=== PATIENT | female | born 1990 | race Caucasian/White ===

== ENCOUNTER 2017-08-06 16:18 | Emergency (ER) | payer OTHER ==
--- NOTE | 2017-08-06 16:33 | PDOC ---
Rapid Medical Evaluation Time Seen by Provider: 08/06/17 16:29 Medical Evaluation: I have performed a brief in-person evaluation of this patient. The patient presents with a chief complaint of: Started cipro for UTI 3 days ago. Feeling b/l flank pain and back spasms today. Also with sore throat today. Pertinent physical exam findings: b/l flank TTP. No CVA TTP. I have ordered the following: labs, UA/culture/hcg, insert IV, Normal saline The patient will proceed to the ED for further evaluation. Discharge Disposition - Diagnosis Flank pain - Referrals - Patient Instructions - Post Discharge Activity
[2017-08-06 16:34] VITALS: BP 99/71; TEMP 98.7; BMI 20.4
[2017-08-06] MEDS ORDERED: SODIUM CHLORIDE 0.9% 500 ML INFUS.BAG IV ONE (16:49)
--- NOTE | 2017-08-06 16:54 | PDOC ---
History of Present Illness - General Chief Complaint: Pain, Acute Stated Complaint: ALLERGIC REACTION Time Seen by Provider: 08/06/17 16:29 - History of Present Illness Initial Comments: 27-year-old female without comorbidities presents for evaluation of back pain dysuria and sore throat. She states about a month ago she was being treated for urinary tract infection she never completed the entire course of antibiotics because she started to feel better and then about a week ago she was placed on Cipro for a recurrent UTI. Her symptoms persist despite treatment. She denies fever she does have general malaise. 08/06/17 16:49 Past History - Past Medical History Allergies/Adverse Reactions: Allergies Allergy/AdvReac Type Severity Reaction Status Date / Time No Known Allergies Allergy Verified 08/06/17 16:29 Home Medications: Ambulatory Orders Ciprofloxacin HCl [Cipro] 500 mg PO BID 08/06/17 CVA: No COPD: No DVT: No Other medical history: REOCCURENT UTI"S - Immunization History Immunization Up to Date: Yes - Suicide/Smoking/Psychosocial Hx Smoking History: Never smoked Information on smoking cessation initiated: No Hx Alcohol Use: No Drug/Substance Use Hx: No Substance Use Type: None Review of Systems - Review of Systems Constitutional: Yes: Malaise HEENTM: Yes: Throat Pain Musculoskeletal: Yes: Back Pain All Other Systems: Reviewed and Negative *Physical Exam - Vital Signs Last Vital Signs Temp Pulse Resp BP Pulse Ox 98.7 F 118 H 18 99/71 99 08/06/17 16:30 08/06/17 16:30 08/06/17 16:30 08/06/17 16:30 08/06/17 16:30 - Physical Exam Comments: GENERAL: The patient is awake, alert, and fully oriented, in no acute distress. HEAD: Normal with no signs of trauma. EYES: Pupils equal, round and reactive to light, extraocular movements intact, sclera anicteric, conjunctiva clear. ENT: Ears normal, nares patent, oropharynx clear without exudates. Moist mucous membranes. NECK: Normal range of motion, supple without lymphadenopathy, JVD, or masses. LUNGS: Breath sounds equal, clear to auscultation bilaterally. No wheezes, and no crackles. HEART: Regular rate and rhythm, normal S1 and S2 without murmur, rub or gallop. ABDOMEN: Soft, nontender, normoactive bowel sounds. No guarding, no rebound. No masses. Bilateral CVA tenderness. EXTREMITIES: Normal range of motion, no edema. No clubbing or cyanosis. No cords, erythema, or tenderness. NEUROLOGICAL: Cranial nerves II through XII grossly intact. Normal speech, normal gait. PSYCH: Normal mood, normal affect. SKIN: Warm, Dry, normal turgor, no rashes or lesions noted. 08/06/17 16:50 Medical Decision Making - Medical Decision Making Is a 27-year-old female afebrile and hypotensive And tachycardic I will have her transferred to the main ER for further workup 08/06/17 16:51 08/06/17 16:51 *DC/Admit/Observation/Transfer Diagnosis at time of Disposition: Flank pain - Referrals - Patient Instructions - Post Discharge Activity
[2017-08-06 17:48] LABS: BASO % 0.2 % (0-2.0); EOS % 0.2 % (0-4.5); HEMATOCRIT 36.9 % (32.4-45.2); LYMPH % 24.9 % (8-40); MCH 27.4 pg (25.7-33.7); MCHC 32.6 g/dl (32.0-36.0); MEAN PLT VOLUME 8.1 fl (7.5-11.1); MONO % 7.6 % (3.8-10.2); NEUT % 67.1 % (42.8-82.8); PLATELET COUNT 291 K/MM3 (134-434); RBC 4.39 M/mm3 (3.60-5.2); RDW 13.1 % (11.6-15.6); WHITE BLOOD COUNT 11.9 K/mm3 (4.0-10.0)
[2017-08-06 17:55] VITALS: PULSE 68
[2017-08-06 18:07] LABS: ALBUMIN 3.2 g/dl (3.4-5.0); ANION GAP 8 (8-16); BLOOD UREA NITROGEN 6 mg/dL (7-18); CALCIUM 8.4 mg/dL (8.5-10.1); CHLORIDE 104 mmol/L (98-107); CO2 25 mmol/L (21-32); GLUCOSE,RANDOM 80 mg/dL (74-106); SODIUM 137 mmol/L (136-145)
[2017-08-06 18:10] LABS: ALK PHOS 68 U/L (45-117); BILIRUBIN,TOTAL 0.4 mg/dL (0.2-1.0); CREATININE 0.9 mg/dL (0.55-1.02); SGOT/AST 33 U/L (15-37); SGPT/ALT 50 U/L (12-78); TOT PROT 7.5 g/dl (6.4-8.2)
[2017-08-06 19:30] LABS: URINE APPEARANCE CLEAR; URINE BILIRUBIN NEGATIVE (<2.0 mg/dL); URINE COLOR YELLOW; URINE GLUCOSE (UA) NEGATIVE (NEGATIVE); URINE KETONE 1+ (NEGATIVE); URINE NITRITE NEGATIVE (NEGATIVE); URINE PROTEIN NEGATIVE (NEGATIVE); URINE UROBILINOGEN NEGATIVE mg/dL (0.2-1.0)
[2017-08-06 19:42] LABS: HCG,QUALITATIVE URINE NEGATIVE
[2017-08-06 19:45] LABS: URINE LEUK ESTERASE 1+ (NEGATIVE)
[2017-08-06 19:54] LABS: EPI CELLS RARE /HPF (FEW); URINE HYALINE CAST 3 /lpf; URINE MUCUS RARE
--- NOTE | 2017-08-06 20:00 | PDOC ---
*Physical Exam - Vital Signs Last Vital Signs Temp Pulse Resp BP Pulse Ox 98.7 F 68 18 99/71 100 08/06/17 16:30 08/06/17 17:53 08/06/17 16:30 08/06/17 16:30 08/06/17 17:53 ED Treatment Course - LABORATORY CBC & Chemistry Diagram: 08/06/17 17:10 08/06/17 17:10 - ADDITIONAL ORDERS Additional order review: Laboratory Results 08/06/17 08/06/17 18:43 17:10 Sodium 137 Potassium 4.0 Chloride 104 Carbon Dioxide 25 Anion Gap 8 BUN 6 L Creatinine 0.9 Creat Clearance w eGFR > 60 Random Glucose 80 Calcium 8.4 L Total Bilirubin 0.4 AST 33 ALT 50 Alkaline Phosphatase 68 Total Protein 7.5 Albumin 3.2 L Urine Color Yellow Urine Appearance Clear Urine pH 5.0 Ur Specific Gore 1.011 Urine Protein Negative Urine Glucose (UA) Negative Urine Ketones 1+ H Urine Blood Negative Urine Nitrite Negative Urine Bilirubin Negative Urine Urobilinogen Negative Ur Leukocyte Esterase 1+ H Urine WBC (Auto) 5 Urine RBC (Auto) 2 Ur Epithelial Cells Rare Hyaline Casts 3 Urine Mucus Rare Urine HCG, Qual Negative 08/06/17 17:10 RBC 4.39 MCV 84.0 MCHC 32.6 RDW 13.1 MPV 8.1 Neutrophils % 67.1 Lymphocytes % 24.9 Monocytes % 7.6 Eosinophils % 0.2 Basophils % 0.2 - RADIOLOGY Radiology Studies Ordered: Category Date Time Status ABDOMEN & PELVIS CT W/O CONTR [CT] Stat CT Scan 08/06/17 19:43 Ordered - Medications Given in the ED: ED Medications Discontinued Medications Generic Name Dose Route Start Last Admin Trade Name Freq PRN Reason Stop Dose Admin Sodium Chloride 1,000 ml 08/06/17 16:49 08/06/17 17:16 Normal Saline - IV 08/06/17 16:50 1,000 ml ONCE ONE Administration Medical Decision Making - Medical Decision Making 08/06/17 19:59 Pt transferred from [facility] for possible pyelo. Presents with urinary sxs, tachycardia, nausea, and b/l flank pain UA/UPT was pending, but may look clean since pt is on cipro x2 days. UPT neg UA pending CTAP noncon ordered to r/o renal colic Updated pt, if CTAP with renal colic, will admit for infected stone If negative for stone, and pt tolerates PO/is well appearing, pt can be DC Case signed out to Dr. Limon for further mgmt/dispo *DC/Admit/Observation/Transfer Diagnosis at time of Disposition: Flank pain - Referrals Referrals: ON STAFF,NOT [Primary Care Provider] - - Patient Instructions - Post Discharge Activity
--- NOTE | 2017-08-06 22:44 | PDOC ---
*Physical Exam - Vital Signs Last Vital Signs Temp Pulse Resp BP Pulse Ox 98.7 F 68 18 99/71 100 08/06/17 16:30 08/06/17 17:53 08/06/17 16:30 08/06/17 16:30 08/06/17 17:53 ED Treatment Course - LABORATORY CBC & Chemistry Diagram: 08/06/17 17:10 08/06/17 17:10 - ADDITIONAL ORDERS Additional order review: Laboratory Results 08/06/17 08/06/17 18:43 17:10 Sodium 137 Potassium 4.0 Chloride 104 Carbon Dioxide 25 Anion Gap 8 BUN 6 L Creatinine 0.9 Creat Clearance w eGFR > 60 Random Glucose 80 Calcium 8.4 L Total Bilirubin 0.4 AST 33 ALT 50 Alkaline Phosphatase 68 Total Protein 7.5 Albumin 3.2 L Urine Color Yellow Urine Appearance Clear Urine pH 5.0 Ur Specific [place] 1.011 Urine Protein Negative Urine Glucose (UA) Negative Urine Ketones 1+ H Urine Blood Negative Urine Nitrite Negative Urine Bilirubin Negative Urine Urobilinogen Negative Ur Leukocyte Esterase 1+ H Urine WBC (Auto) 5 Urine RBC (Auto) 2 Ur Epithelial Cells Rare Hyaline Casts 3 Urine Mucus Rare Urine HCG, Qual Negative 08/06/17 17:10 RBC 4.39 MCV 84.0 MCHC 32.6 RDW 13.1 MPV 8.1 Neutrophils % 67.1 Lymphocytes % 24.9 Monocytes % 7.6 Eosinophils % 0.2 Basophils % 0.2 - Medications Given in the ED: ED Medications Discontinued Medications Generic Name Dose Route Start Last Admin Trade Name Freq PRN Reason Stop Dose Admin Sodium Chloride 1,000 ml 08/06/17 16:49 08/06/17 17:16 Normal Saline - IV 08/06/17 16:50 1,000 ml ONCE ONE Administration *DC/Admit/Observation/Transfer Diagnosis at time of Disposition: Flank pain UTI (urinary tract infection) Qualifiers: Urinary tract infection type: site unspecified Hematuria presence: without hematuria Qualified Code(s): N39.0 - Urinary tract infection, site not specified - Discharge Dispostion Condition at time of disposition: Stable Decision to Admit order: No - Referrals Referrals: ON STAFF,NOT [Primary Care Provider] - - Patient Instructions Printed Discharge Instructions: DI for Urinary Tract Infection (UTI) - Post Discharge Activity
== END 2017-08-06 23:49 | disposition home or self-care (01) ==
LOC: JER 16:18
DX: N39.0 Urinary tract infection, site not specified (principal)
CPT/HCPCS: 36415; 74176-TC; 80053; 81003; 81015; 84703; 85025; 87040; 87086; 99283-25

== ENCOUNTER 2019-11-07 18:02 | Emergency (ER) | payer OTHER ==
[2019-11-07 18:19] VITALS: BP 121/59; PULSE 77; TEMP 97; BMI 24.0
--- OUTSIDE RECORDS SUMMARY | 2019-11-07 18:25 | XMS ---
:1990 Author Organization [facility] Support Name Relationship Address Phone [facility] [employer] [employer] [address]available [place] [address] Re-disclosure Warning The records that you are about to access may contain information from federally- assisted alcohol or drug abuse programs. If such information is present, then the following federally mandated warning applies: This information has been disclosed to you from records protected by federal confidentiality rules (42 CFR part 2). The federal rules prohibit you from making any further disclosure of this information unless further disclosure is expressly permitted by the written consent of the person to whom it pertains or as otherwise permitted by 42 CFR part 2. A general authorization for the release of medical or other information is NOT sufficient for this purpose. The Federal rules restrict any use of the information to criminally investigate or prosecute any alcohol or drug abuse patient.The records that you are about to access may contain highly sensitive health information, the redisclosure of which is protected by Article 27-F of the [facility] Public Health law. If you continue you may haveaccess to information: Regarding HIV / AIDS; Provided by facilities licensed or operated by the [facility] Office of Mental Health; or Provided by the [facility] Office for People With Developmental Disabilities. If such information is present, then the following [facility] mandated warning applies: This information has been disclosed to you from confidential records which are protected by state law. State law prohibits you from making any further disclosure of this information without the specific written consent of the person to whom it pertains, or as otherwise permitted by law. Any unauthorized further disclosure in violation of state law may result in a fine or prison sentence or both. A general authorization for the release of medical or other information is NOT sufficient authorization for further disclosure. Insurance Providers Payer name Policy type Policy ID Covered Covered alliance party's Policy P ilir / Coverage alliance party ID relationship to [employer] type [place] [employer] [place] [id number] [place] [id number] O Results ID Date Data Source [id number] 09/01/2019 12:00:00 AM EDT [facility] Name Value Range Interpretation Code Description Data Elizabeth rce(s) Supporting Document(s ) 2019-nCoV [facility] RNA XXX JUDSON+probe- Imp This lab was ordered by [facility]) and reported by [employer]. ID Date Data Source [id number] 05/18/2019 10:29:00 PM EDT [facility] Name Value Range Interpretation Description Data Sup porting Code Source(s) Document(s ) SARS CoV-2 [facility] Interpretation This lab was ordered by [facility] and reported by [employer]. Procedure
--- NOTE | 2019-11-07 19:16 | PDOC ---
History of Present Illness - General Chief Complaint: Chest Pain Stated Complaint: CHEST TIGHTNESS RADIATING TO RIGHT ARM Time Seen by Provider: 11/07/19 19:11 History Source: Patient Exam Limitations: No Limitations - History of Present Illness Initial Comments: 11/07/19 19:15 Natalya Cruz is a 29F with PMH Nexplanon implant presenting with shortness of breath and chest pain radiating to the right arm. 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 Yesterday was at home in bed about to sleep, had more shortness of breath out of nowhere with sensation of pulling on her right arm, smoked a single cigarette and took a Tramadol she had from a prior ENT problem and felt a little better. This morning still had R arm pulling sensation but less strong, but throughout the day had migration of sensation to left hand and right leg with intermittent SOB. Went to urgent care and told to come to ED for PE evaluation. Denies abd pain, back pain, urinary sx, constipation, diarrhea, BRAUN. No PMH asthma or pulmonary disease. No sick contacts. No recent travel. No PMH DVT/PE, but has Nexplanon hormone implant since November 2018, has not had periods in the last year. PSH . No other meds taken. No FH clotting disorder. Denies alcohol/drugs, non-smoker but gave her one cigarette yesterday. Past History - Medical History Allergies/Adverse Reactions: Allergies Allergy/AdvReac Type Severity Reaction Status Date / Time No Known Allergies Allergy Verified 11/07/19 18:19 Home Medications: Ambulatory Orders Ciprofloxacin HCl [Cipro] 500 mg PO BID 08/06/17 Metoclopramide HCl [Reglan -] 10 mg PO TID #30 tablet 08/06/17 CVA: No COPD: No DVT: No - Reproductive History Is Patient Now?: No - Immunization History Immunization Up to Date: Yes - Psycho-Social/Smoking History Smoking History: Never smoked Review of Systems - Review of Systems Constitutional: No: Symptoms Reported HEENTM: No: Symptoms Reported Respiratory: No: Symptoms reported Cardiac (ROS): Yes: Chest Pain, Edema. No: Palpitations, Syncope ABD/GI: No: Constipated, Diarrhea, Poor Appetite, Poor Fluid Intake, Vomiting : No: Symptoms Reported Musculoskeletal: No: Symptoms Reported Integumentary: No: Symptoms Reported Neurological: Yes: Dizziness Endocrine: No: Symptoms Reported Hematologic/Lymphatic: No: Blood Clots All Other Systems: Reviewed and Negative *Physical Exam - Vital Signs Last Vital Signs Temp Pulse Resp BP Pulse Ox 97 F L 77 18 121/59 L 97 11/07/19 18:12 11/07/19 18:12 11/07/19 18:12 11/07/19 18:12 11/07/19 18:12 - Physical Exam General Appearance: Yes: Nourished, Appropriately Dressed, Other (resting in bed in good spirits). No: Apparent Distress HEENT: positive: EOMI, YOLY, Normal Voice, Symmetrical, TMs Normal, Pharynx Normal. negative: Scleral Icterus (R), Scleral Icterus (L), Pharyngeal Erythema, Tonsillar Exudate, Tonsillar Erythema Neck: positive: Trachea midline, Normal Thyroid, Supple. negative: Tender, Rigid, Lymphadenopathy (R), Lymphadenopathy (L), Rigidity, Tender lateral, Tender midline Respiratory/Chest: positive: Lungs Clear, Normal Breath Sounds. negative: Chest Tender, Respiratory Distress, Accessory Muscle Use, Crackles, Rales, Rhonchi, Stridor, Wheezing Cardiovascular: positive: Regular Rhythm, Regular Rate. negative: Edema, Murmur Gastrointestinal/Abdominal: positive: Normal Bowel Sounds, Flat, Soft. negative: Tender, Organomegaly, Guarding, Rebound Musculoskeletal: positive: Normal Inspection. negative: CVA Tenderness, Decreased Range of Motion Extremity: positive: Normal Capillary Refill, Normal Inspection, Normal Range of Motion. negative: Tender, Pelvis Stable, Pedal Edema, Swelling, Calf Tenderness Integumentary: positive: Normal Color, Dry, Warm Neurologic: positive: automation controls specialist II-XII NML intact, Fully Oriented, Alert, Normal Mood/Affect, Normal Response, Motor Strength 5/5. negative: Sensory Deficit, Finger to Nose (normal) ED Treatment Course - LABORATORY CBC & Chemistry Diagram: 11/07/19 19:39 11/07/19 19:39 Medical Decision Making - Medical Decision Making 11/07/19 19:15 Patient has no other PMH other than hormone implant now presenting with intermittent chest pain and SOB. Most concerning for PE vs. ACS, alternatives include PNA, anxiety. Getting CBC/CMP/CP/coags/d-dimer/ECG/CXR for full evaluation of this. Labs notable for: - CBC WNL - coags WNL - d-dimer WNL - CMP WNL - trop negative CXR grossly unremarkable. ECG NSR with 69, QTc 450, no MATY/D or TWI. Patient feels well and is in NAD. Unlikely to be ACS given PMH and ECG. PE ruled out by D-dimer. Eligible for D/C home with PMD f/u. Discharge - Discharge Information Problems reviewed: Yes Clinical Impression/Diagnosis: SOB (shortness of breath) Chest pain Qualifiers: Chest pain type: unspecified Qualified Code(s): R07.9 - Chest pain, unspecified Condition: Stable - Admission No - Follow up/Referral Referrals: ON STAFF,NOT [Primary Care Provider] - - Patient Discharge Instructions Patient Printed Discharge Instructions: DI for Atypical Chest Pain Additional Instructions: Today you were seen for shortness of breath and limb pain. Your labs are all normal, you do not have a blood clot or a heart attack. You X-ray is normal. Y our symptoms are non-specific, but we have ruled out all the most concerning diseases that could danger your life. You may be having some anxiety, but you need to be seen by your regular doctor for further evaluation. Your Nexplanon implant is working as intended without issues. If you experience worsening symptoms, difficulty breathing, chest pain, dizziness, or any other new or concerning symptoms, please return to the emergency room. - Post Discharge Activity
--- NOTE | 2019-11-07 19:55 | PDOC ---
Documentation entered by Smooth Yarbrough SCRIBE, acting as scribe for Mariel Rodriguez MD. Mariel Rodriguez MD: This documentation has been prepared by the Hayden gomes Angel, SCRIBE, under my direction and personally reviewed by me in its entirety. I confirm that the documentation accurately reflects all work, treatment, procedures, and medical decision making performed by me. Attending Attestation - Resident Resident Name: Vimal Loya - ED Attending Attestation I have performed the following: I have examined & evaluated the patient, The case was reviewed & discussed with the resident, I agree w/resident's findings & plan, Exceptions are as noted - HPI HPI: 11/07/19 19:48 This 30 yo female has noted chest pain and shortness of breath for 15 mminutes on Friday. she also endorsed a pulling sensation in her right arm. She felt better the next day but again today she had intermittent episodes of dyspnea. - Physicial Exam PE: 11/07/19 19:54 wnwd 29 yo female p/w chest pain and right arm pain and shortness of breath head ncat neck supple lungs cta b/l cvs [id number] abdomen nontender skin warm and dry no cva tenderness extremities no edema neuro axox3,ambulatory - Medical Decision Making 11/07/19 21:26 The shortness of breath resolved without any intervention and but today she had an intermittent right arm "pulling discomfort" , She denies any trauma. Her concern appeared to be that her Nexplanon implant was causing this discomfort. EKG is ner, her troponin was negative, her labs were unremarkable 11/08/19 00:21 11/08/19 00:22 Discharge - Discharge Information Problems reviewed: Yes Clinical Impression/Diagnosis: SOB (shortness of breath) Chest pain Qualifiers: Chest pain type: unspecified Qualified Code(s): R07.9 - Chest pain, unspecified Condition: Stable Disposition: HOME - Follow up/Referral Referrals: ON STAFF,NOT [Primary Care Provider] - - Patient Discharge Instructions Patient Printed Discharge Instructions: DI for Atypical Chest Pain Additional Instructions: Today you were seen for shortness of breath and limb pain. Your labs are all normal, you do not have a blood clot or a heart attack. You X-ray is normal. Your symptoms are non-specific, but we have ruled out all the most concerning diseases that could danger your life. You may be having some anxiety, but you need to be seen by your regular doctor for further evaluation. Your Nexplanon implant is working as intended without issues. If you experience worsening symptoms, difficulty breathing, chest pain, dizziness, or any other new or concerning symptoms, please return to the emergency room. - Post Discharge Activity
[2019-11-07 19:59] LABS: BASO % 0.5 % (0-2.0); HEMATOCRIT 38.7 % (32.4-45.2); MCH 28.8 pg (25.7-33.7); MCHC 33.5 g/dl (32.0-36.0); MEAN CELL VOLUME 86.1 fl (80-96); MEAN PLT VOLUME 7.9 fl (7.5-11.1); MONO % 7.3 % (3.8-10.2); NEUT % 46.2 % (42.8-82.8); PLATELET COUNT 280 K/MM3 (134-434); RDW 13.9 % (11.6-15.6); WHITE BLOOD COUNT 6.5 K/mm3 (4.0-10.0)
[2019-11-07 20:17] LABS: INR 0.93 (0.83-1.09)
[2019-11-07 20:20] LABS: ACTIVATED PTT 32.8 SECONDS (25.2-36.5)
[2019-11-07 20:38] LABS: ALBUMIN 4.4 g/dl (3.4-5.0); ALK PHOS 66 U/L (45-117); ANION GAP 6 MMOL/L (8-16); BILIRUBIN,TOTAL 0.3 mg/dL (0.2-1); BLOOD UREA NITROGEN 14.6 mg/dL (7-18); CALCIUM 8.9 mg/dL (8.5-10.1); CHLORIDE 105 mmol/L (98-107); CO2 29 mmol/L (21-32); GLUCOSE,RANDOM 85 mg/dL (74-106); SGOT/AST 18 U/L (15-37); SGPT/ALT 19 U/L (13-61); SODIUM 140 mmol/L (136-145)
--- NOTE | 2019-11-08 14:04 | EKG ---
Test Reason : Blood Pressure : / mmHG Vent. Rate : 069 BPM Atrial Rate : 069 BPM P-R Int : 122 ms QRS Dur : 072 ms QT Int : 420 ms P-R-T Axes : 047 075 062 degrees QTc Int : 450 ms NORMAL SINUS RHYTHM NORMAL ECG NO PREVIOUS ECGS AVAILABLE Confirmed by TY GRULLON MD ([id number]) on 11/08/2019 2:03:49 PM Referred By: Confirmed By:TY GRULLON MD
== END 2019-11-07 21:35 | disposition home or self-care (01) ==
LOC: JER 18:02
DX: R06.02 Shortness of breath (principal); R07.9 Chest pain, unspecified
CPT/HCPCS: 36415; 71046-TC-FY; 80053; 82550; 84484; 84703; 85025; 85379; 85610; 85730; 93005; 93010; 99285-25

== ENCOUNTER 2020-03-09 17:18 | Emergency (ER) | payer OTHER ==
[2020-03-09 17:45] VITALS: BMI 24.0
[2020-03-09] MEDS ORDERED: SODIUM CHLORIDE 0.9% 500 ML INFUS.BAG IV ONE (18:06)
[2020-03-09] MEDS ORDERED: ACETAMINOPHEN 1000 MG/100 ML VIAL (NON FORMULARY) IVPB ONE (18:21)
[2020-03-09] MEDS ORDERED: ONDANSETRON 4 MG/2 ML VIAL IVPUSH ONE (18:21)
[2020-03-09] MEDS ORDERED: FAMOTIDINE 20 MG/50 ML IVPB 20 MG/50 ML MG IVPB ONE ×2 (18:21→18:57)
[2020-03-09] MEDS ORDERED: MAG HYDROX/AL HYDROX/SIMETH -MYLANTA- ORAL SUSPENSION PO ONE (18:21)
[2020-03-09] MEDS ORDERED: ACETAMINOPHEN INJECTION 100 ML IVPB ONE (18:56)
[2020-03-09] MEDS ORDERED: ONDANSETRON 4 MG/2 ML VIAL ONE (18:57)
[2020-03-09] MEDS ORDERED: MAG HYDROX/AL HYDROX/SIMETH 30 ML UNIT-DOSE CUP ONE (18:57)
[2020-03-09 19:40] LABS: BASO % 0.2 % (0-2.0); EOS % 0.1 % (0-4.5); HEMATOCRIT 37.2 % (32.4-45.2); HEMOGLOBIN 12.5 GM/dL (10.7-15.3); LYMPH % 10.6 % (8-40); MCH 29.1 pg (25.7-33.7); MCHC 33.5 g/dl (32.0-36.0); MEAN PLT VOLUME 8.2 fl (7.5-11.1); MONO % 5.6 % (3.8-10.2); NEUT % 83.5 % (42.8-82.8); PLATELET COUNT 238 K/MM3 (134-434); RBC 4.28 M/mm3 (3.60-5.2); RDW 14.3 % (11.6-15.6); WHITE BLOOD COUNT 9.5 K/mm3 (4.0-10.0)
[2020-03-09 20:03] LABS: POTASSIUM 3.8 mmol/L (3.5-5.1)
[2020-03-09 20:08] LABS: ALBUMIN 4.4 g/dl (3.4-5.0); BLOOD UREA NITROGEN 10.7 mg/dL (7-18); CALCIUM 8.9 mg/dL (8.5-10.1)
[2020-03-09 20:11] LABS: CREATININE 0.8 mg/dL (0.55-1.3)
[2020-03-09 20:13] LABS: TOT PROT 7.8 g/dl (6.4-8.2)
[2020-03-09 20:20] VITALS: BP 104/64
[2020-03-09 20:22] VITALS: PULSE 74; TEMP 98.2
== END 2020-03-09 21:12 | disposition home or self-care (01) ==
LOC: JER 17:18
PROC: 3E0333Z Introduction of Anti-inflammatory into Peripheral Vein, Percutaneous Approach (ICD-10-PCS; principal; 2020-03-09)
PROC: 3E033GC Introduction of Other Therapeutic Substance into Peripheral Vein, Percutaneous Approach (ICD-10-PCS; 2020-03-09)
PROC: 3E033GC Introduction of Other Therapeutic Substance into Peripheral Vein, Percutaneous Approach (ICD-10-PCS; 2020-03-09)
DX: R10.9 Unspecified abdominal pain (principal)
CPT/HCPCS: 36415; 80053; 83690; 84703; 85025; 99284-25; C9803; J0131; U0003

== ENCOUNTER 2020-09-14 13:04 | Emergency (ER) | payer OTHER ==
[2020-09-14 13:21] VITALS: BP 106/74; PULSE 76; TEMP 98.1; BMI 24.0
[2020-09-14] MEDS ORDERED: ACETAMINOPHEN 325 MG TABLET (FP) PO ONE (13:41)
[2020-09-14] MEDS ORDERED: DEXAMETHASONE LIQUID 0.5 MG/5 ML PO ONE (13:41)
[2020-09-14] MEDS ORDERED: diphenhydrAMINE HCL 25 MG CAPSULE (FP) PO ONE ×2 (13:41→13:49)
[2020-09-14] MEDS ORDERED: FAMOTIDINE 20 MG TABLET PO ONE (13:42)
[2020-09-14] MEDS ORDERED: DEXAMETHASONE SOD PHOSPHATE 10 MG/1 ML VIAL ONE (13:48)
[2020-09-14] MEDS ORDERED: ACETAMINOPHEN 325 MG TABLET (FP) ONE (13:48)
[2020-09-14] MEDS ORDERED: FAMOTIDINE 20 MG TABLET ONE (13:49)
== END 2020-09-14 14:20 | disposition home or self-care (01) ==
LOC: JER 13:04
DX: T63.441A Toxic effect of venom of bees, accidental (unintentional), initial encounter (principal); W57.XXXA Bitten or stung by nonvenomous insect and other nonvenomous arthropods, initial encounter
CPT/HCPCS: 99283-25

== ENCOUNTER 2020-09-23 19:49 | Emergency (ER) | payer OTHER ==
[2020-09-23 20:08] VITALS: BP 108/70; PULSE 103; TEMP 99.2; BMI 22.1
[2020-09-23] MEDS ORDERED: guaiFENesin/CODEINE 10 ML UNIT-DOSE CUPS PO ONE (21:33)
[2020-09-23] MEDS ORDERED: ACETAMINOPHEN 500 MG TABLET (FP) PO ONE (21:33)
[2020-09-23] MEDS ORDERED: guaiFENesin/CODEINE 5 ML UNIT-DOSE CUPS PO ONE (21:42)
[2020-09-23] MEDS ORDERED: ACETAMINOPHEN 500 MG TABLET (FP) ONE (21:42)
== END 2020-09-23 23:11 | disposition home or self-care (01) ==
LOC: JER 19:49
DX: J06.9 Acute upper respiratory infection, unspecified (principal); B34.9 Viral infection, unspecified; Z11.52 Encounter for screening for COVID-19
CPT/HCPCS: 71046-TC-FY; 99284-25; C9803; U0003; U0005

== ENCOUNTER 2021-09-04 20:53 | Emergency (ER) | payer OTHER ==
[2021-09-04 21:06] VITALS: BP 113/78; PULSE 77; RESP 20; TEMP 98.3; BMI 23.1
[2021-09-04] MEDS ORDERED: METOCLOPRAMIDE HCL INJECTION 10 MG/2 ML VIAL IVPUSH ONE (22:21)
[2021-09-04] MEDS ORDERED: SODIUM CHLORIDE 0.9% 500 ML INFUS.BAG IV ONE (22:21)
[2021-09-04] MEDS ORDERED: KETOROLAC TROMETHAMINE 30 MG/1 ML VIAL IVPUSH ONE (22:21)
[2021-09-04] MEDS ORDERED: METOCLOPRAMIDE HCL INJECTION 10 MG/2 ML VIAL ONE (22:30)
[2021-09-04] MEDS ORDERED: KETOROLAC TROMETHAMINE 30 MG/1 ML VIAL ONE (22:30)
[2021-09-04 22:45] LABS: BASO % 0.4 % (0-2.0); HEMOGLOBIN 13.8 GM/dL (10.7-15.3); LYMPH % 30.8 % (8-40); MCH 29.4 pg (25.7-33.7); MCHC 33.7 g/dl (32.0-36.0); MEAN CELL VOLUME 87.2 fl (80-96); MEAN PLT VOLUME 7.6 fl (7.5-11.1); MONO % 10.3 % (3.8-10.2); NEUT % 57.5 % (42.8-82.8); PLATELET COUNT 245 10^3/uL (134-434); RBC 4.71 M/mm3 (3.60-5.2); RDW 13.6 % (11.6-15.6); WHITE BLOOD COUNT 8.1 K/mm3 (4.0-10.0)
[2021-09-04 23:06] LABS: BLOOD UREA NITROGEN 7.8 mg/dL (7-18); CALCIUM 9.1 mg/dL (8.5-10.1)
[2021-09-04 23:09] LABS: CREATININE 0.7 mg/dL (0.55-1.3)
[2021-09-04 23:11] LABS: BILIRUBIN,TOTAL 0.4 mg/dL (0.2-1); TOT PROT 8.3 g/dl (6.4-8.2)
[2021-09-05 00:23] LABS: EPI CELLS 12 /uL (0-25.1); HCG,QUALITATIVE URINE Negative; HYALINE CASTS 3 /uL (0-3.1); URINE APPEARANCE CLOUDY; URINE BACTERIA >9,000 /uL (0-1359); URINE BILIRUBIN NEGATIVE (NEGATIVE); URINE COLOR YELLOW; URINE GLUCOSE (UA) NEGATIVE (NEGATIVE); URINE KETONE 2+ (NEGATIVE); URINE LEUK ESTERASE 2+ (NEGATIVE); URINE NITRITE POSITIVE (NEGATIVE); URINE PROTEIN NEGATIVE (NEGATIVE); URINE RBC 24 /uL (0-23.9); URINE WBC 231 /uL (0-25.8)
[2021-09-05] MEDS ORDERED: CEFTRIAXONE 1,000 MG in DEXTROSE 5%-WATER - 50 ML IVPB ONE (00:32)
[2021-09-05] MEDS ORDERED: CEFTRIAXONE 1 GM/50 ML BAG ONE (00:33)
== END 2021-09-05 00:54 | disposition home or self-care (01) ==
LOC: JER 20:53
PROC: 3E03329 Introduction of Other Anti-infective into Peripheral Vein, Percutaneous Approach (ICD-10-PCS; principal; 2021-09-04)
PROC: 3E0333Z Introduction of Anti-inflammatory into Peripheral Vein, Percutaneous Approach (ICD-10-PCS; 2021-09-04)
PROC: 3E033GC Introduction of Other Therapeutic Substance into Peripheral Vein, Percutaneous Approach (ICD-10-PCS; 2021-09-04)
DX: N30.01 Acute cystitis with hematuria (principal); G43.909 Migraine, unspecified, not intractable, without status migrainosus
CPT/HCPCS: 0241U-QW; 36415; 70450-TC; 80053; 81003; 84703; 85025; 87086; 87186; 99284-25

== ENCOUNTER 2022-06-26 09:33 | Emergency (ER) | payer OTHER ==
[2022-06-26 09:45] VITALS: BMI 27.9
[2022-06-26 10:40] VITALS: RESP 18
[2022-06-26] MEDS ORDERED: CITRIC ACID/SODIUM CITRATE 30 ML UNIT-DOSE CUP PO ONE (11:30)
[2022-06-26] MEDS ORDERED: ACETAMINOPHEN 500 MG TABLET (FP) PO ONE (11:49)
[2022-06-26] MEDS ORDERED: ACETAMINOPHEN 325 MG TABLET (FP) ONE (12:27)
[2022-06-26 12:47] LABS: BASO % 0.2 % (0-2.0); EOS % 0.5 % (0-4.5); HEMATOCRIT 29.4 % (32.4-45.2); HEMOGLOBIN 9.9 GM/dL (10.7-15.3); LYMPH % 20.3 % (8-40); MCH 27.5 pg (25.7-33.7); MCHC 33.6 g/dl (32.0-36.0); MEAN CELL VOLUME 82.1 fl (80-96); MEAN PLT VOLUME 7.4 fl (7.5-11.1); MONO % 4.7 % (3.8-10.2); NEUT % 74.3 % (42.8-82.8); PLATELET COUNT 248 10^3/uL (134-434); RBC 3.58 M/mm3 (3.60-5.2); RDW 14.1 % (11.6-15.6); WHITE BLOOD COUNT 7.8 K/mm3 (4.0-10.0)
[2022-06-26 12:59] LABS: INR 0.99 (0.83-1.09); PROTHROMBIN TIME (PATIENT) 11.5 SEC (9.7-13.0)
[2022-06-26 13:02] LABS: ACTIVATED PTT 29.5 SECONDS (25.2-36.5)
[2022-06-26 13:08] LABS: POTASSIUM 3.9 mmol/L (3.5-5.1)
[2022-06-26 13:10] LABS: ALBUMIN 2.4 g/dl (3.4-5.0); BLOOD UREA NITROGEN 4.8 mg/dL (7-18); CALCIUM 8.5 mg/dL (8.5-10.1)
[2022-06-26 13:13] LABS: CREATININE 0.5 mg/dL (0.55-1.3)
[2022-06-26 13:15] LABS: BILIRUBIN,TOTAL 0.2 mg/dL (0.2-1)
[2022-06-26 14:05] LABS: MAGNESIUM 1.6 mg/dL (1.8-2.4)
[2022-06-26 14:08] LABS: PHOSPHOROUS 3.5 mg/dL (2.5-4.9)
[2022-06-26] MEDS ORDERED: SODIUM CHLORIDE 1,000 ML IV STA (15:25)
[2022-06-26 16:58] VITALS: BP 104/62; PULSE 85; TEMP 98.3
== END 2022-06-26 18:08 | disposition home or self-care (01) ==
LOC: JER 09:33
PROC: 3E033GC Introduction of Other Therapeutic Substance into Peripheral Vein, Percutaneous Approach (ICD-10-PCS; principal; 2022-06-26)
PROC: 3E033GC Introduction of Other Therapeutic Substance into Peripheral Vein, Percutaneous Approach (ICD-10-PCS; 2022-06-26)
DX: O26.892 Other specified pregnancy related conditions, second trimester (principal); R07.9 Chest pain, unspecified; M79.604 Pain in right leg; R03.0 Elevated blood-pressure reading, without diagnosis of hypertension; M54.9 Dorsalgia, unspecified; M79.601 Pain in right arm; R06.02 Shortness of breath; Z3A.24 24 weeks gestation of pregnancy
CPT/HCPCS: 36415; 71275-TC; 80053; 83735; 84100; 84484; 85025; 85379; 85610; 85730; 93005; 93010; 93970-TC; 99285-25; Q9967

== ENCOUNTER 2022-10-16 08:00 | Inpatient (IN) | payer OTHER ==
[2022-10-16] MEDS ORDERED: CITRIC ACID/SODIUM CITRATE 30 ML UNIT-DOSE CUP PO ONE (08:32)
[2022-10-16] MEDS ORDERED: ELECTROLYTE-148 SOLN 500 ML IV ONE (08:32)
[2022-10-16 09:14] VITALS: BMI 27.4
[2022-10-16] MEDS ORDERED: ONDANSETRON 4 MG/2 ML VIAL IVPUSH PRN (10:58)
[2022-10-16] MEDS ORDERED: morphine SULFATE/PF 1 MG/2 ML (2cc Syringe - QUVA) ONE (11:08)
[2022-10-16] MEDS ORDERED: FENTANYL CITRATE/PF 50 MCG/ML VIAL ONE (11:08)
[2022-10-16] MEDS ORDERED: PHENYLEPHRINE HCL 10 MG/1 ML SINGLE DOSE VIAL ONE (11:32)
[2022-10-16] MEDS ORDERED: ceFAZolin SODIUM 1 GM VIAL ONE (11:35)
[2022-10-16] MEDS ORDERED: MIDAZOLAM HCL 2 MG/2 ML SINGLE DOSE VIAL ONE (11:45)
[2022-10-16] MEDS ORDERED: ONDANSETRON 4 MG/2 ML VIAL ONE (11:57)
[2022-10-16] MEDS ORDERED: OXYTOCIN 10 UNITS/ML VIAL ONE ×2 (11:57)
[2022-10-16] MEDS ORDERED: SENNOSIDES/DOCUSATE COMBO (SENNA PLUS) TABLET (UD) PO PRN (12:40)
[2022-10-16] MEDS ORDERED: oxyCODONE HCL 5 MG TABLET PO PRN ×2 (12:40→12:49)
[2022-10-16] MEDS ORDERED: ONDANSETRON 4 MG/2 ML VIAL IVPB PRN (12:40)
[2022-10-16] MEDS ORDERED: ACETAMINOPHEN INJECTION 100 ML IVPB ONE (13:24)
[2022-10-16] MEDS: ACETAMINOPHEN 1000 MG/100 ML BAG IVPB SCH ×2 (13:30→19:17)
[2022-10-16] MEDS ORDERED: OXYTOCIN 20 UNITS in 0.9% NS 20 UNIT/1,000 ML INFUS.BAG IV ONE (14:13)
[2022-10-16] MEDS: OXYTOCIN 20 UNITS in 0.9% NS 20 UNIT/1,000 ML INFUS.BAG IV SCH (14:30)
[2022-10-16] MEDS: IBUPROFEN 800 MG/8 ML IJ IVPB SCH ×3 (15:18→21:12)
[2022-10-17] MEDS: OXYTOCIN 20 UNITS in 0.9% NS 20 UNIT/1,000 ML INFUS.BAG IV SCH (00:17)
[2022-10-17] MEDS: ACETAMINOPHEN 1000 MG/100 ML BAG IVPB SCH ×2 (01:08→06:35)
[2022-10-17] MEDS: IBUPROFEN 800 MG/8 ML IJ IVPB SCH ×2 (04:36→12:20)
[2022-10-17] MEDS: LEVOTHYROXINE NA 100 MCG TABLET (FP) PO SCH (06:13)
[2022-10-17 08:04] LABS: BASO % 0.5 % (0-2.0); EOS % 1.5 % (0-4.5); HEMATOCRIT 28.8 % (32.4-45.2); HEMOGLOBIN 9.4 GM/dL (10.7-15.3); LYMPH % 20.4 % (8-40); MCH 25.8 pg (25.7-33.7); MCHC 32.5 g/dl (32.0-36.0); MEAN CELL VOLUME 79.4 fl (80-96); MEAN PLT VOLUME 8.8 fl (7.5-11.1); MONO % 7.2 % (3.8-10.2); NEUT % 70.4 % (42.8-82.8); PLATELET COUNT 192 10^3/uL (134-434); RBC 3.63 M/mm3 (3.60-5.2); RDW 17.4 % (11.6-15.6); WHITE BLOOD COUNT 8.6 K/mm3 (4.0-10.0)
[2022-10-17] MEDS: PRENATAL VITAMINS W/ FOLIC ACID TABLET (FP) PO SCH (09:47)
[2022-10-17] MEDS ORDERED: BISACODYL 10 MG SUPP.RECT RC PRN (12:41)
[2022-10-17] MEDS: SIMETHICONE 80 MG TAB.CHEW (FP) PO PRN ×3 (13:34→23:44)
[2022-10-17] MEDS: ACETAMINOPHEN 500 MG TABLET (FP) PO PRN (15:23)
[2022-10-17] MEDS: IBUPROFEN 600 MG TABLET (FP) PO PRN ×2 (17:51→23:44)
[2022-10-17] MEDS: FERROUS SO4 325 MG TABLET (FP) PO SCH (21:50)
[2022-10-18] MEDS: LEVOTHYROXINE NA 100 MCG TABLET (FP) PO SCH (06:12)
[2022-10-18] MEDS: IBUPROFEN 600 MG TABLET (FP) PO PRN ×3 (06:12→20:09)
[2022-10-18] MEDS: ASCORBIC ACID 500 MG TABLET (FP) PO SCH (10:04)
[2022-10-18] MEDS: PRENATAL VITAMINS W/ FOLIC ACID TABLET (FP) PO SCH (10:04)
[2022-10-18] MEDS: FERROUS SO4 325 MG TABLET (FP) PO SCH ×2 (10:04→21:32)
[2022-10-18] MEDS: SIMETHICONE 80 MG TAB.CHEW (FP) PO PRN ×2 (12:17→17:34)
[2022-10-18] MEDS: ACETAMINOPHEN 500 MG TABLET (FP) PO PRN (17:34)
[2022-10-19] MEDS: IBUPROFEN 600 MG TABLET (FP) PO PRN ×2 (03:35→09:11)
[2022-10-19] MEDS: SIMETHICONE 80 MG TAB.CHEW (FP) PO PRN ×2 (03:37→09:10)
[2022-10-19] MEDS: ACETAMINOPHEN 500 MG TABLET (FP) PO PRN (06:07)
[2022-10-19] MEDS: LEVOTHYROXINE NA 100 MCG TABLET (FP) PO SCH (06:07)
[2022-10-19] MEDS: FERROUS SO4 325 MG TABLET (FP) PO SCH (09:10)
[2022-10-19] MEDS: PRENATAL VITAMINS W/ FOLIC ACID TABLET (FP) PO SCH (09:10)
[2022-10-19] MEDS: ASCORBIC ACID 500 MG TABLET (FP) PO SCH (09:11)
[2022-10-19 09:46] VITALS: BP 97/60; PULSE 73; RESP 18; TEMP 98.1
== END 2022-10-19 13:20 | disposition home or self-care (01) | DRG 540 ==
LOC: JLDR 08:15 → J3W 14:35
PROVIDERS: ADMIT Obstetrics & Gynecology; ATTEND Obstetrics & Gynecology
PROC: 10D00Z1 Extraction of Products of Conception, Low, Open Approach (ICD-10-PCS; principal; 2022-10-16)
DX: O34.219 Maternal care for unspecified type scar from previous cesarean delivery (principal); Z3A.39 39 weeks gestation of pregnancy; Z37.0 Single live birth
CPT/HCPCS: 36415; 85025; 88304-TC; 88307-TC; 94010

== ENCOUNTER 2024-03-31 09:20 | Inpatient (IN) | payer OTHER ==
[2024-03-31] MEDS: ELECTROLYTE-148 SOLN 500 ML IV ONE (10:00)
[2024-03-31 10:41] VITALS: BMI 29.0
[2024-03-31] MEDS ORDERED: ONDANSETRON 4 MG/2 ML VIAL ONE (11:00)
[2024-03-31] MEDS ORDERED: LIGASURE IMPACT TP ONE (11:13)
[2024-03-31] MEDS: CITRIC ACID/SODIUM CITRATE 30 ML UNIT-DOSE CUP PO ONE (11:25)
[2024-03-31] MEDS ORDERED: FENTANYL CITRATE/PF 50 MCG/ML VIAL ONE (13:13)
[2024-03-31] MEDS ORDERED: morphine SULFATE/PF 1 MG/2 ML (2cc Syringe - QUVA) ONE (13:13)
[2024-03-31] MEDS ORDERED: OXYTOCIN 10 UNITS/ML VIAL ONE (13:42)
[2024-03-31] MEDS ORDERED: ONDANSETRON 4 MG/2 ML VIAL IVPB PRN (14:35)
[2024-03-31] MEDS ORDERED: OXYTOCIN 20 UNITS in 0.9% NS 20 UNIT/1,000 ML INFUS.BAG IV ONE (14:42)
[2024-03-31] MEDS: OXYTOCIN 20 UNITS in 0.9% NS 20 UNIT/1,000 ML INFUS.BAG IV SCH (14:45)
[2024-03-31] MEDS ORDERED: ACETAMINOPHEN INJECTION 100 ML ONE (16:18)
[2024-03-31] MEDS: ACETAMINOPHEN 1000 MG/100 ML BAG IVPB PRN (16:22)
[2024-03-31] MEDS: IBUPROFEN (CALDOLOR) 800 MG/200 ML PREMIX BAGS IVPB PRN (17:49)
[2024-03-31] MEDS: SIMETHICONE 80 MG TAB.CHEW (FP) PO PRN (20:08)
[2024-03-31] MEDS: FERROUS SO4 325 MG TABLET (FP) PO SCH (21:05)
[2024-03-31] MEDS: SENNOSIDES/DOCUSATE COMBO (SENNA PLUS) TABLET (UD) PO SCH (21:06)
[2024-04-01 08:26] LABS: BASO % 0.5 % (0-2.0); EOS % 2.6 % (0-4.5); HEMATOCRIT 26.8 % (32.4-45.2); HEMOGLOBIN 8.7 GM/dL (10.7-15.3); LYMPH % 20.2 % (8-40); MCH 24.5 pg (25.7-33.7); MCHC 32.3 g/dl (32.0-36.0); MEAN CELL VOLUME 75.8 fl (80-96); MEAN PLT VOLUME 7.5 fl (7.5-11.1); MONO % 7.6 % (3.8-10.2); NEUT % 69.1 % (42.8-82.8); PLATELET COUNT 211 10^3/uL (134-434); RBC 3.53 M/mm3 (3.60-5.2); WHITE BLOOD COUNT 8.7 K/mm3 (4.0-10.0)
[2024-04-01] MEDS: IBUPROFEN 600 MG TABLET (FP) PO PRN (08:32)
[2024-04-01] MEDS: PRENATAL VITAMINS W/ FOLIC ACID TABLET (FP) PO SCH (10:12)
[2024-04-01] MEDS: LEVOTHYROXINE NA 100 MCG TABLET (FP) PO SCH (10:12)
[2024-04-01] MEDS ORDERED: BISACODYL 10 MG SUPP.RECT RC PRN (14:35)
[2024-04-01 14:56] VITALS: RESP 18
[2024-04-01] MEDS: ACETAMINOPHEN 325 MG TABLET (FP) PO PRN (16:23)
[2024-04-01] MEDS: oxyCODONE HCL 5 MG TABLET PO PRN (22:47)
[2024-04-02 08:22] VITALS: BP 104/70; PULSE 69; TEMP 98
== END 2024-04-02 13:31 | disposition home or self-care (01) | DRG 540 ==
LOC: JLDR 09:20 → J3W 17:18
PROVIDERS: ADMIT Specialist; ATTEND Specialist
PROC: 10D00Z1 Extraction of Products of Conception, Low, Open Approach (ICD-10-PCS; principal; 2024-03-31)
PROC: 0UB70ZZ Excision of Bilateral Fallopian Tubes, Open Approach (ICD-10-PCS; 2024-03-31)
PROC: 0UN90ZZ Release Uterus, Open Approach (ICD-10-PCS; 2024-03-31)
DX: O34.211 Maternal care for low transverse scar from previous cesarean delivery (principal); O36.5930 Maternal care for other known or suspected poor fetal growth, third trimester, not applicable or unspecified; N85.8 Other specified noninflammatory disorders of uterus; N73.6 Female pelvic peritoneal adhesions (postinfective); O99.892 Other specified diseases and conditions complicating childbirth; Z3A.38 38 weeks gestation of pregnancy; Z30.2 Encounter for sterilization; Z37.0 Single live birth
CPT/HCPCS: 36415; 59409; 80053; 85025; 85027; 85610; 85730; 86780; 86850; 86900; 86901; 87389; 88304-TC; 88305-TC; 88307-TC; J0131